=== PATIENT | male | born 1980 | race Caucasian/White ===

== ENCOUNTER → 2021-07-17 09:48 | Outpatient (CLI) | payer OTHER, SELFPAY ==
[2021-07-17 12:28] LABS: Absolute Lymphocyte Count 1.88 X10^3/uL (0.83-4.51); Absolute Neutrophil Count 3.6 X10^3/uL (2.0-7.7); Basophil# 0.05 X10^3/uL; Basophil% 0.8 % (0-1); Eosinophil# 0.09 X10^3/uL; Eosinophils% 1.4 % (0-5); Hematocrit 44.7 % (40-54); Hemoglobin 14.9 g/dL (13.0-16.5); Lymphocyte # 1.88 X10^3/ul (0.83-4.51); Lymphocyte % 30.2 % (19-41); Mean Corp Hgb Conc 33.3 g/dL (32-36); Mean Corpuscular Hgb 28.3 pg (27.0-32.0); Mean Platelet Vol. 11.1 fl (6.2-12.0); Monocyte# 0.57 X10^3/uL; Monocyte% 9.1 % (0-10); NRBC Flagged by Analyzer 0 % (0-5); Neutrophil # 3.62 X10^3/uL (2.7-7.7); Neutrophil % 58.2 % (47-70); Platelet Count 236 K/mm3 (150-450); RBC Distribution Width CV 13.3 % (11.6-14.6); RBC Distribution Width SD 41.4 fl (35.1-43.9); Red Blood Count 5.26 M/mm3 (4.6-6.2); White Blood Count 6.2 K/mm3 (4.4-11.0)
[2021-07-17 12:43] LABS: ALB/GLOB Ratio 0.9 RATIO (0.9-2.4); AST(SGOT) 16 U/L (15-37); Alanine Aminotransfer ALT/SGPT 30 U/L (16-61); Albumin, Serum 3.4 g/dL (3.2-5.0); Alkaline Phosphatase 59 U/L (45-117); Anion Gap 6 (5-15); BUN 15 mg/dL (7-18); BUN/Creat Ratio 12.7 RATIO (10-20); Calcium,Total 8.5 mg/dL (8.5-10.1); Chloride 106 mmol/L (98-107); Cholesterol 124 mg/dL (200); Creatinine, Serum 1.18 mg/dL (0.70-1.30); EST Glomerular Filtration Rate 72 mL/min (>60); Est Glom Filt Rate - Afr Amer 87 mL/min (>60); Globulin 3.7 g/dL (2.2-4.2); Glucose 84 mg/dL (74-106); High Density Lipoprotein 31 mg/dL; Potassium 3.7 mmol/L (3.5-5.1); Protein, Total 7.1 g/dL (6.4-8.2); Sodium Level 141 mmol/L (136-145); Thyroid Stim Hormone (TSH) 1.59 uIU/mL (0.358-3.74); Triglycerides 160 mg/dL; Very Low Density Lipoprotein 32 mg/dL (5-40)
== END ==
PROVIDERS: PCP Family Medicine; Referring Provider Family Medicine; Visit Provider Family Medicine
DX: E66.9 Obesity, unspecified (principal); E78.6 Lipoprotein deficiency
CPT/HCPCS: 36415; 80053; 80061; 84443; 85025

== ENCOUNTER 2021-10-07 07:29 | Day surgery (SDC) | payer OTHER, SELFPAY ==
[2021-10-07] VITALS (7 sets, daily range): BP systolic 108–138; BP diastolic 67–99; PULSE 59–90; RESP 16–18; TEMP 35.8–36.5; O2SAT 93–100; BMI 38.0
[2021-10-07] MEDS: Lactated Ringers 1,000 ML 15 ML IV (07:52)
--- NOTE | 2021-10-07 08:30 | IMM_PTH ---
PATIENT: JIMMIE MAC LOC: EN U#:[id number] AGE/SX: 40/M ROOM: RE10/07/[address]: Dr. Trevor Rabago MD : 1980 BED: DIS: 10/07/2021 SPEC #: [id number] RECD: 10/07/21 13:53 STATUS: BRIAN REQ #: [id number] JOLANTA: 10/07/21 08:[address]: Trevor Rabago DEPT: IMMUNOHISTOCHEMISTRY RECD BY: Jeannie Flannery ENTERED: 10/07/21 13:53 SP TYPE: IMMUNO OTHR DR: MD García Mancilla MD Tissues: Stomach, NOS Procedures: H Pylori (initial) PHYSICIAN & INSTITUTION [place] [address] SPECIMEN INFORMATION: Tissue Source: Antrum biopsy Clinical Info: Epigastric pain Specimen Number: [id number] CPT code: 58669 METHODOLOGY: Deparaffinized sections of prefer/formalin-fixed tissue or PAP/DQ stained slides are incubated with monoclonal/polyclonal antibodies/oligonucleotide probes. Localization is made via biotin free immunoperoxidase method. Appropriate controls are performed and reacted as expected. Results on target cell population are indicated in the following table: RESULTS: ANTIBODY / CLONE RESULT H Pylori (polyclonal) negative These tests were developed and their performance characteristics determined by [facility]. They may not have been cleared or approved by the U.S. Food and Drug Administration. The FDA has determined that such clearance or approval is not necessary. INTERPRETATION: Antrum biopsy: Negative for Helicobacter pylori organisms. SJ:meryl 10/08/2021
--- NOTE | 2021-10-07 08:30 | EGD_PTH ---
PATIENT: JIMMIE MAC LOC: EN U#:[id number] AGE/SX: 40/M ROOM: RE10/07/[address]: Dr. Trevor Rabago MD : 1980 BED: DIS: 10/07/2021 SPEC #: [id number] RECD: 10/07/21 10:34 STATUS: BRIAN MOONEY #: [id number] JOLANTA: 10/07/21 08:[address]: Trevor Rabago DEPT: SURGICAL PATHOLOGY RECD BY: Vikcie Kumar ENTERED: 10/07/21 11:12 SP TYPE: EGD BIOPSY OT DR: MD García Mancilla MD Tissues: Gastric mucous membrane Procedures: Surgery Specimen Level IV HEADER OPERATION: EGD ([facility]) PRE-OP DIAGNOSIS: Epigastric pain TISSUE SUBMITTED: Antrum biopsy for histo and H. pylori MICROSCOPIC DIAGNOSIS Antrum biopsy: Mild gastritis. See microscopic description and comment. JOSE LUIS:meryl 10/08/2021 COMMENT The results of immunohistochemistry for Helicobacter pylori will be reported separately ([id number]). MICROSCOPIC DESCRIPTION Slides are reviewed. The specimen shows fragments of gastric mucosa with chronic inflammatory cell infiltrates in the lamina propria consisting of lymphocytes and plasma cells, consistent with mild chronic gastritis. GROSS DESCRIPTION Received in fixative is one container labeled with the patient's name and designated antrum biopsy. The specimen consists of two irregular fragments of light hatfield soft tissue that in aggregate measure 0.5 x 0.3 x 0.1 cm. The specimen is totally submitted in one cassette. / JOSE LUIS:meryl 10/07/21 TC:3 CPT: 85874
--- NOTE | 2021-10-07 08:59 | HP.PCM_ITS ---
HPI - General HPI Narrative JIMMIE ROACH, is a 40 M who presents with epigastric pain. The patient was started on a PPI and his symptoms resolved and once he stopped a PPI his symptoms return. Patient is having epigastric pain and reflux. [facility] Medical History (Updated 10/02/21 @ 09:36 by Codi Bryan) Arthritis Back pain Gastric reflux Migraine headache Non-smoker Seizures Wears glasses Home Medications benzoyl peroxide microspheres 7 % topical cleanser 1 applic TOPICAL DAILY 06/12/21 [History Last Taken Unknown] ondansetron HCl 4 mg tablet 4 mg PO Q8H PRN 06/12/21 [History Last Taken Unknown] Allergy/AdvReac Type Severity Reaction Status Date / Time No Known Allergies Allergy Verified 10/07/21 07:45 Surgical History (Updated 10/02/21 @ 09:36 by Codi Bryan) History of surgery Social History Smoking Status: Never smoker Past Medical/Surgical History Planned Operation Planned Operative Procedure/s: EGD Previous Hospitalizations/Surgeries HX Hospitalizations: No Any Problems With Anesthesia: No You/Your Family Experience Fever (Hyperthermia) With Anes: No (ADOPTED-NO INFO) Cholinesterase deficiency: No Cardiovascular Hx Hypertension: No Respiratory Hx Sleep Apnea: No Hx Respiratory Tract Infection/Cold (presently): No Do You Snore Loudly (louder than talking or can be heard): No Do You Often Feel Tired/ Fatigued/ Sleepy Dring Daytime?: No Has Anyone Observed You Stop Breathing During Sleep?: No Result (for STOP score): Negative Smoking Status: Never smoker Neurological Does patient have nerve stimulator: No Miscellaneous Recent Exposure to Contagious Disease: No Allergies No Known Allergies Allergy (Verified 10/07/21 07:45) Discharge Is Pt Admitted From a [facility]sp, or a [facility]: No After D/C, Where Do you Plan to Go: Return Home Vital Signs Vital Signs Vital Signs: 10/07/21 07:47 Temperature 97.7 F L Temperature Source Temporal Pulse Rate 73 Respiratory Rate 16 Respiratory Pattern Normal Blood Pressure 138/99 H Blood Pressure Mean 112 Blood Pressure Source Monitor Blood Pressure Position Sitting Blood Pressure Location Right Arm Pulse Ox 100 Oxygen Delivery Method Room Air Weight Weight: 257 lb 15.053 oz Body Mass Index (BMI) 38.0 Physical Exam Const alert and oriented x3 Resp normal respiratory effort and normal air movement Cardio regular rate and regular rhythm GI soft to palpation, non-tender and non-distended Assessment & Plan Assessment/Plan (1) Epigastric pain: PLAN: Patient had ongoing epigastric pain, it resolved on a PPI when he stopped PPI it returned. Plan for EGD with biopsies. I explained endoscopy in detail to the patient. I explained the risks including but not limited to stroke or heart attack with anesthesia, perforation of the GI tract, bleeding, infection. I explained that any of these could necessitate further emergency surgery. The patient understands and all questions were answered sufficiently. The patient wishes to proceed with procedure. Trevor Rabago MD Pager: [facility] [address] [place] [address] [address] [place] [address] Office: Surgery Risks - Colonoscopy Risks Include but are not Limited To: Risks include but are not limited to: Bleeding, perforation requiring further surgery, inability to complete colonoscopy requiring barium enema.
--- NOTE | 2021-10-07 09:24 | OP.EGD_ITS ---
Patient Name: Smo De Los Santos Procedure Date: 10/07/2021 9:07 AM Date of : 1980 Age: 40 Procedure: Upper GI endoscopy Indications: Epigastric abdominal pain Providers: Trevor Rabago MD Referring MD: García Wong Medicines: Monitored Anesthesia Care Patient Profile: This is a 40 year old male. Refer to note in patient chart for documentation of history and physical. Complications: No immediate complications. Procedure: Pre-Anesthesia Assessment: - Prior to the procedure, a History and Physical was performed, and patient medications and allergies were reviewed. The patient's tolerance of previous anesthesia was also reviewed. The risks and benefits of the procedure and the sedation options and risks were discussed with the patient. All questions were answered, and informed consent was obtained. Prior Anticoagulants: The patient has taken no previous anticoagulant or antiplatelet agents. After reviewing the risks and benefits, the patient was deemed in satisfactory condition to undergo the procedure. After obtaining informed consent, the endoscope was passed under direct vision. Throughout the procedure, the patient's blood pressure, pulse, and oxygen saturations were monitored continuously. The Endoscope was introduced through the mouth, and advanced to the second part of duodenum. The upper GI endoscopy was accomplished without difficulty. The patient tolerated the procedure well. Scope In: 9:16:21 AM Scope Out: 9:18:25 AM Total Procedure Duration Time 0 hours 2 minutes 4 seconds Findings: The esophagus was normal. The stomach was normal. The examined duodenum was normal. Biopsies were taken with a cold forceps in the gastric antrum for Helicobacter pylori testing. Impression: - Normal esophagus. - Normal stomach. - Normal examined duodenum. - Biopsies were taken with a cold forceps for Helicobacter pylori testing. Recommendation: - Discharge patient to home. - Resume previous diet. - Continue present medications. - Await pathology results. - Perform a RUQ ultrasound at appointment to be scheduled. Procedure Code(s): --- Professional --- 18188, Esophagogastroduodenoscopy, flexible, transoral; with biopsy, single or multiple Diagnosis Code(s): --- Professional --- R10.13, Epigastric pain CPT copyright 2017 [employer]. All rights reserved. The codes documented in this report are preliminary and upon church organist review may be revised to meet current compliance requirements. Trevor Rabago MD 10/07/2021 9:24:22 AM This report has been signed electronically. Number of Addenda: 0 Note Initiated On: 10/07/2021 9:07 AM
--- NOTE | 2021-10-07 09:25 | OP.CCLET_ITS ---
10/07/2021 García Wong Md Re : Upper GI endoscopy procedure for Som De Los Santos Dear Judith This procedure was performed on Thursday, October 07, 2021. My impressions and recommendations are as follows: Impressions : - Normal esophagus. - Normal stomach. - Normal examined duodenum. - Biopsies were taken with a cold forceps for Helicobacter pylori testing. Recommendations : - Discharge patient to home. - Resume previous diet. - Continue present medications. - Await pathology results. - Perform a RUQ ultrasound at appointment to be scheduled. My findings are described in the full procedure note, which is enclosed. If I can be of further assistance, please feel free to contact me at Doctor phone number(s): , Work: . Sincerely, Trevor Rabago MD 10/07/2021 9:24:22 AM This report has been signed electronically.
== END 2021-10-07 10:12 | disposition home or self-care (01) ==
LOC: EN 07:30 → AC 07:30
PROVIDERS: PCP Family Medicine; Referring Provider Family Medicine; Visit Provider Surgery
PROC: 0DJ08ZZ Inspection of Upper Intestinal Tract, Via Natural or Artificial Opening Endoscopic (ICD-10-PCS; CPT 43235; principal; 2021-10-07 08:25)
DX: K29.70 Gastritis, unspecified, without bleeding (principal); R10.13 Epigastric pain; K21.9 Gastro-esophageal reflux disease without esophagitis
CPT/HCPCS: 43239; 88305; 88342; J7120; J2405

== ENCOUNTER 2021-10-16 07:42 | Outpatient (CLI) | payer OTHER, SELFPAY ==
--- NOTE | 2021-10-16 07:49 | US_ITS ---
STUDY: ABDOMINAL ULTRASOUND - RIGHT UPPER QUADRANT REASON FOR VISIT: Male, 40 years old Abdominal pain TECHNIQUE: Ultrasound evaluation of the right upper quadrant was performed with real-time and static rodriguez-scale imaging. TECHNICAL QUALITY: Limited. Examination limited by bowel gas. COMPARISON: None. FINDINGS: Liver: The liver measures 16.9 cm. There is normal echogenicity of the liver. The bile ducts are within normal limits. There is hepatic color flow. The direction of portal flow is hepatopetal. There is no demonstrated mass lesion. Gallbladder: Normal distended gallbladder. The gallbladder wall measures 2.4 mm. There is a negative sonographic Saeed''s sign. There is no pericholecystic fluid. There are multiple echogenic structures within the gallbladder, consistent with multiple gallstones. Common Bile Duct (C.B.D.): The common bile duct measures 3.7 mm. Pancreas: There is nonvisualization of the pancreas due to overlying bowel gas. Right Kidney: Normal size of the right kidney. The right kidney measures 11.3 cm x 5.5 cm x 6.3 cm. Normal renal cortex. The right cortex measures 1.7 cm. There is no demonstrated renal mass or cyst. There is no right hydronephrosis. US/Gallbladder IMPRESSION: Multiple gallstones. Electronically Signed: Tolu Spicer MD at 9:21 EST , Service support ,
== END 2021-10-16 23:59 | disposition short-term general hospital (02) ==
LOC: US 07:47
PROVIDERS: PCP Family Medicine; Referring Provider Physician Assistant; Visit Provider Physician Assistant
DX: R10.13 Epigastric pain (principal)
CPT/HCPCS: 76705

== ENCOUNTER 2022-08-14 05:10 | Inpatient (IN) | payer OTHER, SELFPAY ==
[2022-08-14 05:11] VITALS: BP 134/92; PULSE 79; RESP 18; TEMP 36.7; O2SAT 95; BMI 39.8
--- NOTE | 2022-08-14 05:12 | EDS_ITS ---
HPI History of Present Illness Chief Complaint: Abd Pain Narrative Narrative: 41-year-old male here with abdominal pain. The patient states he had 1 day of epigastric abdominal pain. Denies any alcohol use. Denies any nausea or vomiting. Denies fever. No chills. Denies melena hematochezia. Denies diarrhea constipation. Last bowel was yesterday. No history abdominal surgeries. Denies chest pain. Notes abdominal pain gets worse when taking a deep breath. Per patient he is aware he has gallstones. States he is followed with surgery in the past. Surgeon recommended gallbladder move at that time however patient did not feel comfortable with this procedure. He states he still has his gallbladder Old chart reviewed: Ultrasound gallbladder done in October 2021 shows multiple gallstones [facility] Medical History (Updated 08/14/22 @ 06:[address] Steven Logan, ) Arthritis Back pain Gastric reflux Migraine headache Non-smoker Sebaceous cyst of axilla Seizures Wears glasses Home Medications benzoyl peroxide microspheres 7 % topical cleanser 1 applic topical DAILY 06/12/21 [History Last Taken Unknown] Allergy/AdvReac Type Severity Reaction Status Date / Time No Known Allergies Allergy Verified 08/14/22 05:15 Surgical History History of surgery Social History Smoking Status: Never smoker ROS ROS ED ROS Narrative Constitutional: Denies fever HEENT: Denies sore throat Neck: Denies neck pain Cardiovascular: Denies chest pain, syncope Respiratory: Denies shortness of breath GI: Endorses abdominal pain : Denies changes in urinary habits Musculoskeletal: Denies muscle or joint pain Neurologic: Denies numbness weakness or loss of sensation Skin denies rash EXAM Physical Exam Narrative Exam Narrative: Nursing triage notes reviewed, Vital signs reviewed Constitutional: please see mdm HENT: MMM Eyes: Pupils equal round and reactive to light, Extraocular muscles intact Neck: No stridor, no JVD, full neck ROM Lungs: Clear to auscultation, No wheezing or rales. No increased work of breathing, no conversational dyspnea, no accessory muscle use, no nasal flaring. No respiratory distress noted Heart: Regular rate and rhythm, No murmurs, No rubs and No gallops, 2+ distal pulses (radial, femoral, posterior tibial) in all extremities Abdomen: Right upper quadrant TTP, positive Saeed sign. No Rigidity, rebound. No obvious peritoneal signs, no palpable pulsatile abdominal masses, no auscultated abdominal bruit : No CVAT Extremities: No edema Neuro: No focal neurological deficits, cranial nerves II through XII intact, 5/5 strength in all extremities. Intact sensation to light touch in all extremities, 2+ reflexes bilateral patella dens. Normal gait. No ataxia. Skin: No rash or lesions noted Const Vital Signs: 08/14/22 05:11 Temperature 98.0 F Temperature Source Oral Pulse Rate 79 Respiratory Rate 18 Blood Pressure 134/92 H Blood Pressure Mean 106 Pulse Ox 95 Oxygen Delivery Method Room Air MDM MDM MDM Narrative Medical decision making narrative: 41-year-old male here for abdominal pain in the setting of gallstones. Patient was hemodynamically stable, afebrile, nontoxic-appearing. Patient was exam with right upper quadrant TTP, positive Saeed sign. No obvious peritoneal signs. Obtained an ultrasound of the right upper quadrant to rule out acute cholecystitis we also obtain labs without pancreatitis, hepatobiliary pathology, signs of systemic inflammation. Given the epigastric nature of the patient's pain also obtain EKG, troponin and chest x-ray to rule out cardiopulmonary abnormalities masking is epigastric abdominal pain gave fluid bolus, morphine for pain and Zofran for nausea. Lab Data Attestation: I reviewed the patient's lab results. Lab results narrative: CBC with leukocytosis suggestive of systemic inflammation, no severe anemia or thrombocytopenia noted BMP without evidence of significant electrolyte abnormalities, no anion gap, no acute kidney injury. LFTs with severe hyperbilirubinemia, elevations in liver enzymes concerning for obstructive hepatobiliary disease Lipase is wnl indicating no pancreatic inflammation. Troponin is negative, no evidence of myocardial ischemia Labs: Laboratory Results - last 24 hr 08/14/22 08/14/22 05:15 05:15 WBC 11.1 H RBC 5.18 Hgb 15.4 Hct 44.1 MCV 85.1 MCH 29.7 MCHC 34.9 RDW Std Deviation 41.1 RDW Coeff of Angie 13.2 Plt Count 252 MPV 11.1 Immature Gran % (Auto) 0.500 Neut % (Auto) 82.8 H Lymph % (Auto) 7.4 L Atlantic % (Auto) 8.9 Eos % (Auto) 0.1 Baso % (Auto) 0.3 Absolute Neuts (auto) 9.2 H Absolute Lymphs (auto) 0.82 L Nucleated RBC % 0 Sodium 142 Potassium 3.8 Chloride 109 H Carbon Dioxide 28.0 Anion Gap 5 BUN 19 H Creatinine 1.27 Estim Creat Clear Calc 75.00 Est GFR (MDRD) Af Amer 79 Est GFR (MDRD) Non-Af 66 BUN/Creatinine Ratio 15.0 Glucose 120 H Calcium 8.6 Total Bilirubin 2.20 H Direct Bilirubin 1.34 H AST 464 H ALT 436 H Alkaline Phosphatase 87 Troponin I High Sens 4 Total Protein 7.6 Albumin 3.8 Globulin 3.8 Lipase 94 Radiography Chest X-Ray - ED: Read by ED Physician EKG Initial EKG: Attestation: I personally reviewed and interpreted this EKG as follows: Comments: EKG with normal sinus rhythm, normal axis, normal intervals, no STEMI Treatment and Re-Evaluation Narrative: Unfortunately [facility] does not have ultrasound available at this time. Ultimately available at 7 AM approximately 1 hour after my initial evaluation. Patient's labs are concerning for obstructive hepatobiliary pathology with elevations in bilirubin, liver enzymes. With leukocytosis concern for acute cholecystitis. Discharge Plan Triage Chief Complaint: Abd Pain ED Provider: Steven Logan Dx/Rx/DC Orders Clinical Impression: Epigastric pain, Hx of gallstones, Leukocytosis, Hyperbilirubinemia, Elevated liver enzymes Prescriptions: No Action benzoyl peroxide microspheres 7 % cleanser 1 applic topical DAILY Primary Care Provider: García Wong Referrals: García Wong MD [Primary Care Provider] -
--- NOTE | 2022-08-14 05:33 | US_ITS ---
STUDY: ABDOMINAL ULTRASOUND - RIGHT UPPER QUADRANT REASON FOR VISIT: Male, 41 years old RUQ TTP, hx of gallstones TECHNIQUE: Ultrasound evaluation of the right upper quadrant was performed with real-time and static rodriguez-scale imaging. TECHNICAL QUALITY: Adequate. COMPARISON: None. FINDINGS: LIVER: Length 18 cm. Increased echogenicity. Main portal vein patent. GALLBLADDER Size: Distended. Stones: Multiple stones. Largest measured 9 mm. Wall thickness: Not thickened. 2.7 mm. Pericholecystic fluid: None. Sonographic Saeed sign: Negative. EXTRAHEPATIC BILE DUCTS: Common bile duct 5 mm not dilated. PANCREAS: Not visualized, obscured by bowel gas. RIGHT KIDNEY: No hydronephrosis. ASCITES: None. US/Gallbladder IMPRESSION: Cholelithiasis. No evidence of acute cholecystitis. Hepatomegaly with fatty infiltration. Electronically Signed: Paula Snyder MD at 7:47 EDT ,
--- NOTE | 2022-08-14 05:34 | EKG12_ITS ---
Test Reason : ABD PAIN Blood Pressure : / mmHG Vent. Rate : 072 BPM Atrial Rate : 072 BPM P-R Int : 180 ms QRS Dur : 090 ms QT Int : 374 ms P-R-T Axes : 057 066 043 degrees QTc Int : 409 ms Normal sinus rhythm Normal ECG Confirmed by DEVI KWOK, FREDDY ([id number]), assignment desk editor MARGE VELIZ ([id number]) on 08/17/2022 1:18:45 PM Referred By: BOO Confirmed By:FREDDY QUINONEZ MD
[2022-08-14] MEDS: 0.9% Normal Saline 1,000 ML 1000 ML IV (05:43)
[2022-08-14] MEDS: Ondansetron 4 MG/2 ML Vial IV (05:44)
[2022-08-14] MEDS: Morphine 4 MG/ML Syringe IV (05:44)
[2022-08-14 05:51] LABS: Absolute Lymphocyte Count 0.82 X10^3/uL (0.83-4.51); Absolute Neutrophil Count 9.2 X10^3/uL (2.0-7.7); Basophil# 0.03 X10^3/uL; Basophil% 0.3 % (0-1); Eosinophil# 0.01 X10^3/uL; Eosinophils% 0.1 % (0-5); Hematocrit 44.1 % (40-54); Hemoglobin 15.4 g/dL (13.0-16.5); Lymphocyte # 0.82 X10^3/ul (0.83-4.51); Lymphocyte % 7.4 % (19-41); Mean Corp Hgb Conc 34.9 g/dL (32-36); Mean Corpuscular Hgb 29.7 pg (27.0-32.0); Mean Corpuscular Volume 85.1 fL (80-94); Mean Platelet Vol. 11.1 fl (6.2-12.0); Monocyte# 0.99 X10^3/uL; Monocyte% 8.9 % (0-10); NRBC Flagged by Analyzer 0 % (0-5); Neutrophil % 82.8 % (47-70); Platelet Count 252 K/mm3 (150-450); RBC Distribution Width CV 13.2 % (11.6-14.6); RBC Distribution Width SD 41.1 fl (35.1-43.9); Red Blood Count 5.18 M/mm3 (4.6-6.2); White Blood Count 11.1 K/mm3 (4.4-11.0)
[2022-08-14 06:10] LABS: AST(SGOT) 464 U/L (15-37); Alanine Aminotransfer ALT/SGPT 436 U/L (16-61); Albumin, Serum 3.8 g/dL (3.2-5.0); Alkaline Phosphatase 87 U/L (45-117); Anion Gap 5 (5-15); BUN 19 mg/dL (7-18); Bilirubin, Direct 1.34 mg/dL (0.00-0.30); Calcium,Total 8.6 mg/dL (8.5-10.1); Chloride 109 mmol/L (98-107); Creatinine, Serum 1.27 mg/dL (0.70-1.30); EST Glomerular Filtration Rate 66 mL/min (>60); Est Glom Filt Rate - Afr Amer 79 mL/min (>60); Globulin 3.8 g/dL (2.2-4.2); Glucose 120 mg/dL (74-106); Lipase 94 U/L (73-393); Potassium 3.8 mmol/L (3.5-5.1); Protein, Total 7.6 g/dL (6.4-8.2); Sodium Level 142 mmol/L (136-145); Troponin-I HS 4 pg/mL (3.0-78.0)
--- NOTE | 2022-08-14 07:25 | RAD_ITS ---
STUDY: X-RAY CHEST REASON FOR EXAM: Male, 41 years old. epigastric abdominal pain TECHNIQUE: AP portable. 7:38 AM COMPARISON: None. FINDINGS: LUNGS: No consolidation. No pneumothorax. MEDIASTINUM: Unremarkable. CARDIAC SILHOUETTE: Not enlarged. BONES AND SOFT TISSUES: No acute abnormalities. RAD/Chest 1 View (Portable) IMPRESSION: No evidence of active intrathoracic disease. Electronically Signed: Paula Snyder MD at 7:44 EDT ,
--- NOTE | 2022-08-14 08:16 | NURSING ---
MED SURG OBS VINOD CHOLELITHIASIS, ABD PAIN, ABN LABS
[2022-08-14 08:53] VITALS: BP 128/80; PULSE 66; RESP 18; TEMP 37.1; O2SAT 97
[2022-08-14] MEDS: 0.9% Normal Saline 1,000 ML 125 ML IV ×2 (09:50→17:21)
[2022-08-14 09:56] VITALS: BP 130/83; PULSE 78; RESP 18; TEMP 36.8; O2SAT 98; BMI 40.8
--- NOTE | 2022-08-14 14:44 | NURSING ---
verbal report given to juan c PEREZ
[2022-08-14 15:01] VITALS: BP 137/79; PULSE 89; RESP 18; TEMP 37.2; O2SAT 98
--- NOTE | 2022-08-14 17:55 | CASEMGMT ---
ANA VILLA POCKET CUTTER CM to room to meet with patient for initial transition planning/care coordination assessment. ANA VILLA introduced self and role at [facility].? Pt voices understanding and consents to assessment at this time.? Pt sitting up on edge of bed in no distress at this time.? Pt is A/O at this time and answers all questions appropriately.?? Care providers, pharmacy, and demographics verified/updated at this time.? PCP:?Dr Wong Specialists:?none Preferred Pharmacy:?[facility] Insurance:?MMO Prescription Benefit:?Pt states, I believe I might have it Living Will/HPOA:??Pt does not currently have LW/HCPOA and declines info at this time.? Pt made aware that he can contact as an out-pt and make appt in the future if he decides he would like to talk with someone about this or would like to utilize [facility] social work for advanced directive completion.? Given [employer] card with information and contact number. Pt expresses understanding.??? LNOK:? Living Arrangements:?Lives w/his . Independent. Works full-time Transportation:?Pt states he is able to drive, but does not like to d/t anxiety, so provides most transportation. DME: ? Denies using any DME and denies needs.?? HHC/SNF:?No hx of either. No needs identified. Pt wishes to return home and states has no concerns with going home at time of discharge.?CM to follow for any discharge planning/needs.? Pt voices no concerns/needs at this time.? Advised pt to ask for CM if any questions/concerns/needs arise.? Voices understanding. PLAN:??Home Tomas HUIZAR RN, CM?
--- NOTE | 2022-08-14 18:13 | PCM.HP.STD ---
HPI - General General Date of Admission: 08/14/22 Date of Service: 08/14/22 Chief Complaint: abdominal pain HPI Narrative JIMMIE ROACH, is a 41 M who presents with right upper quadrant and epigastric abdominal pain. He has known cholelithiasis - seen by Dr. Rabago in October for this but deferred surgery at that time [facility] Medical History (Updated 08/14/22 @ 10:07 by Daisha Tubbs) Arthritis Back pain Gastric reflux Migraine headache Non-smoker Sebaceous cyst of axilla Seizures Wears glasses Home Medications benzoyl peroxide microspheres 7 % topical cleanser 1 applic topical DAILY Check with primary doctor 06/12/21 [History Last Taken Unknown] Allergy/AdvReac Type Severity Reaction Status Date / Time No Known Allergies Allergy Verified 08/14/22 05:15 Surgical History (Updated 08/14/22 @ 10:09 by Daisha Tubbs) History of surgery Social History Smoking Status: Never smoker Vital Signs Vital Signs Vital Signs: 08/14/22 05:11 08/14/22 08:53 08/14/22 09:56 Temperature 98.0 F 98.7 F 98.2 F Temperature Source Oral Oral Oral Pulse Rate 79 66 78 Pulse Strength Respiratory Rate 18 18 18 Blood Pressure 134/92 H 128/80 H 130/83 H Blood Pressure Mean 106 96 98 Blood Pressure Source Monitor Blood Pressure Position Sitting Blood Pressure Location Right Arm Pulse Ox 95 97 98 Oxygen Delivery Method Room Air Room Air Room Air 08/14/22 10:27 08/14/22 15:01 Temperature 98.9 F Temperature Source Oral Pulse Rate 89 Pulse Strength Normal (2+) Respiratory Rate 18 Blood Pressure 137/79 H Blood Pressure Mean 98 Blood Pressure Source Monitor Blood Pressure Position Semi-Fowlers Blood Pressure Location Right Arm Pulse Ox 98 Oxygen Delivery Method Room Air Weight Weight: 125.645 kg Body Mass Index (BMI) 40.8 Results Lab / Micro Data Result Diagrams: 08/14/22 05:15 08/14/22 05:15 Labs: Laboratory Results - last 24 hr 08/14/22 05:15: WBC 11.1 H, RBC 5.18, Hgb 15.4, Hct 44.1, MCV 85.1, MCH 29.7, MCHC 34.9, RDW Std Deviation 41.1, RDW Coeff of Angie 13.2, Plt Count 252, MPV 11.1, Immature Gran % (Auto) 0.500, Neut % (Auto) 82.8 H, Lymph % (Auto) 7.4 L, Gregory % (Auto) 8.9, Eos % (Auto) 0.1, Baso % (Auto) 0.3, Absolute Neuts (auto) 9.2 H, Absolute Lymphs (auto) 0.82 L, Nucleated RBC % 0 08/14/22 05:15: Sodium 142, Potassium 3.8, Chloride 109 H, Carbon Dioxide 28.0, Anion Gap 5, BUN 19 H, Creatinine 1.27, Estim Creat Clear Calc 75.00, Est GFR (MDRD) Af Amer 79, Est GFR (MDRD) Non-Af 66, BUN/Creatinine Ratio 15.0, Glucose 120 H, Calcium 8.6, Total Bilirubin 2.20 H, Direct Bilirubin 1.34 H, AST 464 H, ALT 436 H, Alkaline Phosphatase 87, Troponin I High Sens 4, Total Protein 7.6, Albumin 3.8, Globulin 3.8, Lipase 94 Radiology Impression Gallbladder Ultrasound 08/14/22 05:33 IMPRESSION: Cholelithiasis. No evidence of acute cholecystitis. Hepatomegaly with fatty infiltration. Electronically Signed: Paula Snyder MD at 7:47 EDT , Chest X-Ray 08/14/22 07:25 IMPRESSION: No evidence of active intrathoracic disease. Electronically Signed: Paula Snyder MD at 7:44 EDT , Assessment & Plan Assessment/Plan (1) Gallstones: PLAN: Patient seems much improved since admission, requiring minimal pain medications I have told him that given that this is not urgent surgery at this point in time, I will not schedule for surgery over the weekend due to lack of optimal personnel present. I may be able to schedule surgery for Wednesday. I have explained the procedure to the patient - that is laparoscopic cholecystectomy. I have counseled the patient as to the risks of the procedure, including but not limited to: infection, bleeding, injury to any blood vessels/nerves, scar tissue, injury to any intraabdominal organs, injury to kidney/ureters, injury to bowel/bladder, injury to the common bile duct/biliary tree, bile leakage, intraabdominal abscess/bleeding, hernias at incisional sites, wound infections, possible open procedure, complications of anesthesia, postoperative pneumonia/cardiac problems/blood clots etc. the patient understands. I have answered all questions to the patient?s satisfaction and the patient has no further questions. His concern is whether insurance will quickly approve for the procedure if he is discharged from the hospital. I told patient that I cannot answer that question. At this point, he prefers to stay in the hospital until surgery is achieved. He has a minimally elevated WBC, will hold of an antibiotics unless he clinically has further symptoms, at this point, patient does not appear to have acute cholecystitis but more likely biliary colic. Will monitor temperature changes Will check repeat labs later this - Wednesday am. PLAN: Plan see above
[2022-08-14 19:47] VITALS: BP 133/89; PULSE 84; RESP 16; TEMP 36.9; O2SAT 96
[2022-08-14 19:51] VITALS: BP 133/89; PULSE 84; RESP 16; TEMP 36.9; O2SAT 96
--- NOTE | 2022-08-14 20:30 | CM.ED ---
SINDY note SINDY was advised that patient has questions regarding his insurance. SINDY called patient and advised him that if he was hospitalized as an inpatient then his hospital benefit will provide the coverage. Patient said that the opiton is for him till stay till Wednesday for surgery or go home and come back for Wednesday but then people have stated it would be elective surgery. Patient also inquired as to why his surgeon changed and this appeals writer said that this appeals writer does not know the answer to that question. SINDY will have CM follow up with patient on Wednesday for clarification. SINDY also encouraged patient to contact his insurance regarding his benefit. Email sent to Craig MADISON
[2022-08-15] MEDS: 0.9% Normal Saline 1,000 ML 125 ML IV ×2 (01:00→08:28)
[2022-08-15 02:03] VITALS: BP 122/78; PULSE 90; RESP 18; TEMP 37.2; O2SAT 95
[2022-08-15 08:00] VITALS: BP 132/89; PULSE 80; RESP 17; TEMP 36.8; O2SAT 96
--- NOTE | 2022-08-15 10:12 | PCM.PN.SRG ---
Subjective Subjective Patient has minimal abdominal pain - described as intermittent twinges of sharp pain (he states on a scale of 0-2 on a scale of 1-10) Feels hungry -asks about a regular diet Objective Data Objective Data Vital Signs: Vital Signs Temp Pulse Resp BP Pulse Ox O2 Del Method 98.9 F 90 18 122/78 H 95 Room Air 08/15/22 02:03 08/15/22 02:03 08/15/22 02:03 08/15/22 02:03 08/15/22 02:03 08/15/22 02:03 Oxygen Delivery Method Room Air Weight: 125.645 kg Body Mass Index (BMI) 40.8 Intake & Output: Intake and Output for Last 24 Hours 08/13/22 08/14/22 08/15/22 23:59 23:59 23:59 Intake Total 2109.58 / 2909.58 3189.58 / 3189.58 Output Total 900 / 900 Balance 2109.58 / 2309.58 2289.58 / 2289.58 Lab / Micro Data Attestation: I reviewed the patient's lab results. Result Diagrams: 08/14/22 05:15 08/14/22 05:15 Physical Exam Const alert and oriented x3 General Appearance: comfortable HEENT normocephalic Neck supple Resp normal respiratory effort Effort and Inspection: able to speak in complete sentences GI GI Narrative: abdomen - benign appearing Assessment & Plan Assessment/Plan (1) Gallstones: PLAN: Patient still has insurance concerns regarding surgery which I cannot answer - he wants to be assured that if he is discharged, he would not have to wait long to schedule surgery and that insurance will quickly approve for surgery I have explained the surgery to the patient - he has no further questions regarding this He will discuss with social psychologist and then decide if he wants to stay in the hospital or not. PLAN: Plan see above
[2022-08-15] MEDS: Acetaminophen 500 MG Tablet PO (10:52)
--- NOTE | 2022-08-15 11:00 | CASEMGMT ---
Addendum entered by Craig Nunez 08/15/22 12:54: Labs have been re-drawn. Dr Gutierrez notified and reviewed results w/her. She states she will discharge pt and pt to f/u with Dr Rabago as an OP on Wednesday. Pt notified. Addendum entered by Craig Nunez 08/15/22 11:42: CBC and liver enzymes have been drawn and results are back. Much improvement noted w/liver enzymes. Dr Gutierrez notified and made aware pt/family comfortable w/pt being discharged home today as long as labs had not worsened too much. Dr Gutierrez reviewed the labs and states she will discharge pt today and okay w/pt f/u w/Dr Rabago as pt had initially seen him. Pt and family notified of all of the above. Tomas HUIZAR RN, CM Original Note: ANA VILLA NOTE: ANA VILLA spoke w/Dr Gutierrez. Per Dr Gutierrez, pt is medically ready to be discharged and can have surgery done as an OP. She states she has explained this to the pt but he has concerns/questions re: insurance and coverage. ANA VILLA to room to talk w/pt. Family at bedside and on the phone w/an insurance rep when ANA VILLA entered room. Once pt/family completed phone call w/insurance co, ANA VILLA able to answer further questions re: insurance, status, and medical necessity requirements for on-going hospitalization. Pt/family verbalize understanding and state they are comfortable with pt being discharged home today, as long as labs are not too unchanged from previously and Dr Gutierrez still feels he is medically ready for discharge after labs resulted. They are aware CBC and liver enzymes have been ordered and to be drawn today. RNMisty, and charge master coordinatorKimmie, made aware. Tomas HUIZAR RN, CM
--- NOTE | 2022-08-15 11:43 | DCINST_ITS ---
Discharge Instructions Follow Up Care Test Results: Test results from this visit will be discussed in further detail at your follow- up appointment, if applicable. Discharge Plan Admission Admit Date/Time: 08/14/22 08:14 Primary Reason for Your Visit: abdominal pain Attending Provider: Sydnee Gutierrez Primary Care Provider: García Wong Instructions Additional Instructions / Restrictions: Recommendations - low fat diet Can follow up with Dr. Rabago for consideration of gallbladder surgery. Discharge Orders/Prescriptions Prescriptions: No Action benzoyl peroxide microspheres 7 % cleanser 1 applic topical DAILY Referrals / Follow Up: García Wong MD [Primary Care Provider] - Disposition Discharge Orders: Discharge Patient (Routine); Ordered 08/15/22 Ordered By: Dr. Sydnee Gutierrez
[2022-08-15 12:24] LABS: Absolute Lymphocyte Count 1.76 X10^3/uL (0.83-4.51); Absolute Neutrophil Count 5.1 X10^3/uL (2.0-7.7); Basophil# 0.05 X10^3/uL; Basophil% 0.7 % (0-1); Eosinophil# 0.08 X10^3/uL; Hematocrit 41.5 % (40-54); Hemoglobin 13.8 g/dL (13.0-16.5); Lymphocyte # 1.76 X10^3/ul (0.83-4.51); Lymphocyte % 22.9 % (19-41); Mean Corp Hgb Conc 33.3 g/dL (32-36); Mean Corpuscular Hgb 28.2 pg (27.0-32.0); Mean Corpuscular Volume 84.7 fL (80-94); Monocyte# 0.67 X10^3/uL; Monocyte% 8.7 % (0-10); NRBC Flagged by Analyzer 0 % (0-5); Neutrophil # 5.05 X10^3/uL (2.7-7.7); Neutrophil % 65.8 % (47-70); Platelet Count 203 K/mm3 (150-450); RBC Distribution Width CV 13.4 % (11.6-14.6); RBC Distribution Width SD 41.6 fl (35.1-43.9); White Blood Count 7.7 K/mm3 (4.4-11.0)
[2022-08-15 12:39] LABS: AST(SGOT) 351 U/L (15-37); Alanine Aminotransfer ALT/SGPT 810 U/L (16-61); Albumin, Serum 3.2 g/dL (3.2-5.0); Alkaline Phosphatase 120 U/L (45-117); Bilirubin, Direct 0.62 mg/dL (0.00-0.30); Globulin 3.4 g/dL (2.2-4.2); Protein, Total 6.6 g/dL (6.4-8.2)
== END 2022-08-15 14:57 | disposition home or self-care (01) | DRG 446 ==
LOC: ED 05:48 → MS3 09:32
PROVIDERS: Admitting Provider Surgery; Emergency Provider Emergency Medicine; PCP Family Medicine; Visit Provider Surgery
DX: K80.20 Calculus of gallbladder without cholecystitis without obstruction (principal)
CPT/HCPCS: 71045; 76705; 80048; 80076; 83690; 84484; 85025; 93005; 99284; J7030; A4216; J2405

== ENCOUNTER → 2022-08-17 | Outpatient (CLI) | payer OTHER, SELFPAY ==
[2022-08-17 13:22] LABS: Absolute Lymphocyte Count 2.08 X10^3/uL (0.83-4.51); Absolute Neutrophil Count 4.7 X10^3/uL (2.0-7.7); Basophil# 0.07 X10^3/uL; Basophil% 0.9 % (0-1); Eosinophils% 1.3 % (0-5); Hematocrit 44.6 % (40-54); Hemoglobin 14.8 g/dL (13.0-16.5); Lymphocyte # 2.08 X10^3/ul (0.83-4.51); Lymphocyte % 26.5 % (19-41); Mean Corp Hgb Conc 33.2 g/dL (32-36); Mean Corpuscular Hgb 27.9 pg (27.0-32.0); Mean Corpuscular Volume 84.2 fL (80-94); Mean Platelet Vol. 10.9 fl (6.2-12.0); Monocyte# 0.81 X10^3/uL; Monocyte% 10.3 % (0-10); NRBC Flagged by Analyzer 0 % (0-5); Neutrophil # 4.69 X10^3/uL (2.7-7.7); Neutrophil % 59.9 % (47-70); Platelet Count 232 K/mm3 (150-450); RBC Distribution Width CV 13.3 % (11.6-14.6); RBC Distribution Width SD 40.6 fl (35.1-43.9); White Blood Count 7.8 K/mm3 (4.4-11.0)
[2022-08-17 14:11] LABS: AST(SGOT) 59 U/L (15-37); Alanine Aminotransfer ALT/SGPT 400 U/L (16-61); Albumin, Serum 3.8 g/dL (3.2-5.0); Alkaline Phosphatase 108 U/L (45-117); Anion Gap 3 (5-15); BUN 12 mg/dL (7-18); BUN/Creat Ratio 10.5 RATIO (10-20); Calcium,Total 9.2 mg/dL (8.5-10.1); Chloride 106 mmol/L (98-107); Creatinine, Serum 1.14 mg/dL (0.70-1.30); EST Glomerular Filtration Rate 74 mL/min (>60); Est Glom Filt Rate - Afr Amer 90 mL/min (>60); Globulin 3.9 g/dL (2.2-4.2); Glucose 87 mg/dL (74-106); Potassium 3.6 mmol/L (3.5-5.1); Protein, Total 7.7 g/dL (6.4-8.2); Sodium Level 140 mmol/L (136-145)
== END | disposition home or self-care (01) ==
LOC: LAB 12:24
PROVIDERS: PCP Family Medicine; Visit Provider Physician Assistant
DX: R10.13 Epigastric pain (principal)
CPT/HCPCS: 36415; 80053; 85025

== ENCOUNTER 2022-08-20 09:58 | Day surgery (SDC) | payer OTHER, SELFPAY ==
[2022-08-20] VITALS (12 sets, daily range): BP systolic 124–143; BP diastolic 80–99; PULSE 79–97; RESP 14–18; TEMP 36.4–36.6; O2SAT 91–98; BMI 39.0
--- NOTE | 2022-08-20 10:14 | EKG12_ITS ---
Test Reason : PREOP Blood Pressure : / mmHG Vent. Rate : 069 BPM Atrial Rate : 069 BPM P-R Int : 146 ms QRS Dur : 096 ms QT Int : 398 ms P-R-T Axes : 066 075 023 degrees QTc Int : 426 ms Normal sinus rhythm Normal ECG Confirmed by PETE KWOK, ISIS ([id number]), map editor MARGE VELIZ ([id number]) on 08/26/2022 8:14:23 AM Referred By: Filipe East Confirmed By:ISIS FREEMAN MD
[2022-08-20] MEDS: Lactated Ringers 1,000 ML 15 ML IV ×2 (10:27→15:21)
--- NOTE | 2022-08-20 11:31 | PCM.HP.BLA ---
History and Physical Date of Admission: 08/20/22 Dr. Cain Mccloud is unavailable to proceed with surgery today. He has asked me to take over the care of this patient. I have introduced myself to this patient and to his . I have reviewed his history and physical and imaging and presentation. Visit Reasons:?RT UPPER QUADRANT PAIN Chief Complaint: Right Upper Quadrant Abdominal Pain Gallery Or Museum Curator Required: No Is patient in pain?: No Allergies No Known Allergies Allergy (Verified 08/17/22 11:34) Medications benzoyl peroxide microspheres 7 % topical cleanser 1 applic topical DAILY Check with primary doctor 06/12/21 [History Confirmed 08/17/22] PFSH Medical History? Arthritis Back pain Gastric reflux Migraine headache Non-smoker Sebaceous cyst of axilla Seizures Wears glasses Surgical History? History of surgery Social History?(Updated 08/17/22 @ 11:33 by Mary Wednesday) Smoking Status:? Never smoker alcohol intake:? current details:? Rarely HPI HPI HPI: Patient presents as an add-on to today's clinic for evaluation of right upper quadrant discomfort and known cholelithiasis.? He reports that he was just recently discharged from the hospital this weekend after he had a gallbladder attack on while at work.? He states that normally his episodes are self-limited, but this episode persisted until 5 AM the next morning.? He reports having a turkey sandwich with a soda at lunch prior to the onset of his pain.? He states when he went to the emergency room he was told by the emergency room physicians that he would likely require a gallbladder surgery the same admission, but when his pain improved by the following day discharge was discussed. Regarding patient's prior episodes of discomfort, he states his first such episode was approximately April 2021.? This led him to present for emergency room evaluation in [place] where he initially was worked up for possible cardiac cause, but ultimately found to have gallstones on the right upper quadrant ultrasound.? He does note that these episodes have been somewhat difficult to distinguish from his history with GERD as well.? October 07, 2021 he underwent EGD with Dr. Rabago and was prescribed omeprazole.? He states he took this faithfully for 2 weeks then discontinued it as there is no further discussion around taking it chronically.? At that procedure he underwent antral biopsy with findings of mild gastritis, but no evidence of Chandler factor pylori infection.? Patient notes that his right upper quadrant abdominal symptoms are associated with cold chills, nausea, and shaking, but no objective fever is ever been measured.? Patient has no prior history of abdominal surgery. Patient's most recent ER work-up was notable for a mild leukocytosis of 11.3 and cholestatic pattern to his LFTs as well as hyperbilirubinemia with a comprehensive metabolic panel.? His right upper quadrant ultrasound performed at this evaluation showed a 2.7 mm wall, confirmed cholelithiasis, and demonstrated a common bile duct diameter of 5 mm.? He is also noted to have evidence of hepatomegaly with fatty liver infiltration. ROS General General: No weight change, appetite, fatigue, colon cancer, breast cancer or weakness HEENT HEENT: No difficulty swallowing, eye injury, eye surgery, swollen glands or hoarseness Endo Endocrine: No thyroid disease, diabetes mellitus, thyroid cancer, Hair loss, heat intolerance or cold intolerance Skin Skin: No rash or changing moles Musc Musculoskeletal: No back problems, arthritis, rheumatoid arthritis, gout or joint pain Cardio Cardiovascular: No murmur, pacemaker, heart disease, atrial fibrillation, high blood pressure, heart attack, heart stent, palpitations, shortness of breat with exertion or chest pain Psych Psychiatric: No depression, anxiety or hearing voices Resp Respiratory: No shortness of breath, No sleep apnea, No cough, No COPD, No asthma, No emphysema and No wheezing Gastro Gastrointestinal: No abdominal pain, No nausea or vomiting, No diarrhea, No constipation, No blood in stool, No acid reflux, No hemorrhoids, No ulcers, No gallbladder problem and No black,tarry stools Niko Hematologic: No blood thinners, No blood disorders, No bleeding, No anemia and No blood clots Neuro Neurologic: No system reviewed and no additional complaints, except as documented, No as per HPI, No abnormal gait, No abnormal hearing, No abnormal movements, No abnormal speech, No behavioral changes, No burning sensations, No confusion, No convulsions, No disequilibrium, No dizziness, No localized weakness, No frequent falls, No headache(s), No lack of coordination, No loss of vision, No memory loss, No numbness, No other visual disturbances, No radicular pain, No restless legs, No sensory deficit, No syncope, No tingling, No tremor(s), No weakness and No other Exam Const General: cooperative and no acute distress Orientation: alert, awake and oriented x3 Resp Effort & Inspection: normal respiratory effort Auscultation: no rales, no rhonchi and no wheezes Cardio Rhythm: regular rhythm GI Other: No scars, nondistended, obese, soft, tender to palpation in the right upper quadrant but negative Saeed sign Assessment and Plan Assessment and Plan (1) Elevated liver enzymes: ?Status:?Acute (2) Hyperbilirubinemia: ?Status:?Acute (3) Symptomatic cholelithiasis: ?Status:?Acute ? ? ? Orders: Orders Comprehensive Metabolic Profil Today R10.13 - Epigastric pain ? CBC W/Diff, Automated Today R10.13 - Epigastric pain ? Plan This is a 41-year-old, relatively healthy, male who presents following recent hospital discharge with complaints of right upper quadrant pain, associated nausea and chills with known cholelithiasis but newly observed abnormalities with his comprehensive metabolic panel.? Taken together this is highly suggestive of biliary colic and probable chronic cholecystitis with possible choledocholithiasis.? I have discussed patient's laboratory and imaging results with him in detail to include hand drawings to better display the biliary drainage situation.? I have recommended urgent laparoscopic cholecystectomy with intraoperative cholangiogram.? Informed patient that I will plan to do this on an outpatient basis, however, if he was found to have persistent common bile duct stones he may require a short admission with consultation to gastroenterology for ERCP.? Patient is accepting of this recommendation and treatment plan and states he is committed to having this done.? We have also discussed that he should plan for 1 week postoperatively to recuperate from his procedure and a post operative clinic visit.? He and his have a number of questions related to postoperative dietary restrictions/recommendations.? I have counseled him that I do generally recommend a low-fat diet following cholecystectomy, but do so with more earnest for him given his repeated findings of fatty liver infiltration.? Patient has and his spouse expressed understanding of this information as well and we will look to have this followed up with primary care provider. Assessment & Plan Assessment/Plan (1) Gallstones: (2) Elevated liver enzymes: PLAN: Plan The patient claims that he is stable since his presentation a week ago. No fever or chills. Is complaining of some right upper quadrant pain today. His most recent set of liver function tests were improving. I have reviewed his ultrasound note the gallstones and a slightly dilated common bile duct as well as the fatty liver. I have proposed for him a laparoscopic cholecystectomy with cholangiograms and if need be an attempt at a laparoscopic common bile duct exploration. We have discussed the technique, benefit, risk, alternatives. We have discussed the potential need for a postoperative ERCP. I additionally discussed with him the findings on ultrasound and body habitus and that if the liver appeared to have a significant mount of fatty change that I would recommend pursuing a laparoscopic guided needle core liver biopsy. I have briefly explained the potential for nonalcoholic steatohepatitis. This would be useful for his caretakers in the future if there is a suspicion of its presence. He has had an option to ask and have questions answered. I am now the fourth general surgeon who he has seen for this problem. He elects to proceed as noted. Filipe East M.D., F.A.C.S.
--- NOTE | 2022-08-20 11:34 | DCINST_ITS ---
Discharge Instructions Procedure General Surgery Diet Discharge Diet: Light diet - advance as tolerated (if you have questions about your diet instructions, please talk to you doctor.) Activity Discharge Activity: May Not Drive (for 3-5 days or while taking narcotic pain medicine.) May shower in (days): 1 Lifting Restrictions: 10 pounds Dressing / Incision Call your doctor if your incision/area has: Continuous Slow Oozing, Sudden Increased Bleeding, Increased Pain/ Swelling, Increased Redness and Foul Smelling Discharge Call your doctor if you observe: Fever of 101 or Higher Suture Line Care: Avoid Pulling/Pushing and Avoid Pinching/Bending Additional Dressing/Incision Instructions:: Change or remove dressing in 4 days. Leave steri-strips in place for 1 week. Follow Up Care Please Follow Up With: Filipe East MD When: Call [phone] to make an appointment to be seen in about 10 days. Test Results: Test results from this visit will be discussed in further detail at your follow- up appointment, if applicable. Discharge Plan Admission Attending Provider: Filipe East Primary Care Provider: García Wong Consulting Providers: Cain Mccloud Discharge Orders/Prescriptions Prescriptions: No Action benzoyl peroxide microspheres 7 % cleanser 1 applic topical DAILY Referrals / Follow Up: García Wong MD [Primary Care Provider] - Disposition Disposition (needs filled in before D/C Order can be placed): Home, Self Care
--- NOTE | 2022-08-20 12:00 | GALL_PTH ---
PATIENT: JIMMIE MAC LOC: [facility] [place] U#:[id number] AGE/SX: 41/M ROOM: RE08/20/[address]: Dr. Filipe East MD : 1980 BED: DIS: 08/20/2022 SPEC #: [id number] RECD: 08/20/22 16:22 STATUS: BRIAN FRANCODelaney #: [id number] JOLANTA: 08/20/22 12:[address]: Filipe East DEPT: SURGICAL PATHOLOGY RECD BY: Louisa Thorne ENTERED: 08/21/22 07:53 SP TYPE: CHAZ TORRE DR: MD García Sandoval MD Tissues: A - Gallbladder, NOS B - Liver, NOS Procedures: Surgery Specimen Level III Surgery Specimen Level V HEADER OPERATION: Laparoscopic cholecystectomy with IOC, liver biopsy PRE-OP DIAGNOSIS: Elevated liver enzymes, hyperbilirubinemia, symptomatic cholelithiasis TISSUE SUBMITTED: A ? Gallbladder, B ? Liver core biopsy MICROSCOPIC DIAGNOSIS A. Gallbladder, cholecystectomy: Chronic cholecytstitis and cholelithiasis. B. Liver, core biopsy: Liver parenchymal tissue with focal minimal macrovesicular steatosis. See microscopic description and comment. /JOSE LUIS 08/24/22 COMMENT Correlation with clinical, laboratory findings and appropriate follow up are necessary. MICROSCOPIC DESCRIPTION Slides are reviewed. B. The specimen shows liver parenchymal tissue with preserved lobular architecture. The hepatocytes show minimal macrovesicular steatosis. The lobular inflammation is not seen. The portal areas do not show significant inflammation. Iron stain shows mild deposition of iron in the hepatocytes and Kupffer cells (1/4). Reticulin stain is unremarkable. PAS stain with and without diastase do not show abnormal accumulation of protein. Trichrome stain does not show significant increase of portal or periportal fibrosis. All stains are performed with appropriate matched controls. GROSS DESCRIPTION A - Received is one container labeled with the patient's name and designated gallbladder. The specimen consists of a gallbladder measuring 8 cm in length and 3 cm in diameter. The external surface is pink-hatfield, smooth and glistening for the most part. Focally it is granular, hemorrhagic and contains cautery artifact. The gallbladder contains a small amount of green-yellow mucoid bile and distended with multiple mulberry, yellowish-orange stones and stone fragments measuring in aggregate 4 x 3.5 x 2 cm and 0.2 to 1.5 cm in greatest dimension. The mucosa is bile-stained and without any mass lesions. The gallbladder wall measures up to 0.5 cm in thickness. Log Inspector sections from the gallbladder and the cystic duct are submitted in one cassette. / JOSE LUIS:meryl 08/21/2022 B - Received in fixative is one container labeled with the patient's name and designated liver core biopsy. The specimen consists of one elongated fragment of light hatfield soft tissue measuring 0.6 cm in length and 0.1 cm in diameter. The specimen is totally submitted in one cassette. / JOSE LUIS:meryl 08/21/2022 TC:3 CPT: 63635, 34311, 36755 x5
--- NOTE | 2022-08-20 12:00 | RAD_ITS ---
STUDY: INTRAOPERATIVE CHOLANGIOGRAM. REASON FOR EXAM: Male, 41 years old. LAP SAM WITH IOC FLUOROSCOPY TIME (if supplied): ( 25 seconds ) minutes/seconds. A cine loop of 171 images was obtained. TECHNIQUE: An intraoperative cholangiogram was performed by the surgeon. Imaging was submitted. COMPARISON: None. FINDINGS: The intra and extrahepatic biliary ducts are unremarkable. No intraluminal filling defect is seen. There is free flow of contrast into the duodenum. RAD/Cholangiogram/ O R,Initial IMPRESSION: Unremarkable intraoperative cholangiogram. Electronically Signed: Tolu Spicer MD at 13:23 EST ,
[2022-08-20] MEDS: Bupivacaine 0.25% 30 ML Vial (13:10)
--- NOTE | 2022-08-20 13:10 | PCM.OPRPT ---
Report of Operation Date of Procedure: 08/20/22 Pre-Operative Diagnosis: Chronic cholecystitis cholelithiasis possible subacute cholecystitis Post-Operative Diagnosis: Same Surgery/Procedure Performed:: Laparoscopic cholecystectomy with cholangiograms, David-Cut needle core right lobe liver biopsy Description of Surgical Findings:: Timeout informed consent was obtained. Patient was taken the operating placed supine on the table underwent general endotracheal ovation esthesia. Ancef 2 g were given intravenously. The abdomen was sterilely prepped and draped. 0.25% Marcaine was used as a local anesthetic. Throughout the procedure a total of 30 cc was used. Local was instilled at the superior aspect the umbilicus sharp dissection carried down through subcu tissue holding sutures of 0 Vicryl placed varies needle inserted saline drop test performed the abdomen was insufflated with CO2 to a pressure of 12 mmHg pressure. 10 mm trocar inserted. The 10 mm laparoscope inserted. The abdomen is inspected and significant mount of fibrofatty omentum. Liver had fatty replacement. Gallbladder was stuck within the liver bed with adherent omentum. 5 mm trochars were placed in the epigastric mid abdomen right upper quadrant. The adherent omentum was carefully bluntly dissected free Hem-o-marianna clips were used for hemostasis were needed. There was significant amount of remaining fibrofatty tissue except completely encasing the gallbladder. This had to be tediously dissected free until the infundibular area could be identified. With blunt dissection I eventually got around the infundibular portion of the gallbladder and further blunt dissection aqua dissection was used to identify the cystic artery and the cystic duct. There was additionally a small posterior cystic artery. Having the critical view now achieved with a Hem-o-marianna clip on the cystic duct [place] made incision through a 14-gauge Angiocath inserted cholangiogram catheter. The patient received a milligram of glucagon. Fluoroscopically controlled cholangiograms were obtained demonstrating normal ductal anatomy and free flow into the small bowel. There was no evidence of any current intraductal filling defects and a nice cholangiogram was achieved. The cholangiogram catheter was removed 2 additional Hem-o-marianna clips were placed on the cystic duct stump prior to transecting it. The anterior cystic artery was clipped twice proximally once distally prior to transecting it. The small posterior vessel secured with a Hem-o-marianna clip. The gallbladder was noted to be inflamed with chronic inflammation and adherent to the liver. Tedious blunt and electrocautery dissection was performed. Small opening did release some bile however it was felt that all stones were kept aspirated or maintained. The gallbladder was tediously dissected free from the liver bed and immediately placed in retrieval bag. A couple loose stones were rapidly retrieved and placed in the bag as well. The right upper quadrant was irrigated and aspirated free. Low resection area liver bed area was inspected and was noted to be hemostatic. Careful inspection for any residual stones were made and none were identified. Through the same site as the clinic Angiocath I put a David-Cut needle core biopsy and obtained a single core biopsy of the right lobe of the liver. That was placed on formalin and immediately submitted for analysis. This was performed because of concern of about possible nonalcoholic steatohepatitis. The biopsy site was secured with electrocautery and hemostasis was intact. The abdomen was now allowed deflate of the CO2. The gallbladder was exited the umbilicus. Slight fascial enlargement was required. The fascia was then approximated with 2 [id number] sutures of 0 Vicryl. Skin edges proximal interrupted 4 Monocryl subdermal stitches. Steri-Strips Telfa OpSite dressings applied. Sponge and instrument and needle counts were reported to the surgeon to be correct. Specimen gallbladder and right lobe liver core biopsy. Blood loss 20 cc. Drains none. Filipe East M.D., F.A.C.S. Surgeon: Filipe East Type of Anesthesia: General Anesthesiologist: Filipe East
[2022-08-20] MEDS: Acetaminophen 325 MG Tablet 650 MG PO (16:40)
== END 2022-08-20 17:36 | disposition home or self-care (01) ==
LOC: SDC 09:58 → AC 09:59
PROVIDERS: PCP Family Medicine; Referring Provider Surgery; Visit Provider Surgery
PROC: (CPT 47610; principal; 2022-08-20 11:40)
DX: K80.10 Calculus of gallbladder with chronic cholecystitis without obstruction (principal); J45.909 Unspecified asthma, uncomplicated; F32.9 Major depressive disorder, single episode, unspecified; K76.0 Fatty (change of) liver, not elsewhere classified; E80.7 Disorder of bilirubin metabolism, unspecified; R74.8 Abnormal levels of other serum enzymes
CPT/HCPCS: 47563; 47379; 00790; 74300; 76000; 88304; 88307; 93005; J7120; J1610; J2405

== ENCOUNTER 2022-10-01 08:47 | Outpatient (RCR) | payer OTHER, SELFPAY | END 2022-10-10 23:59 | LOC: NS 08:47 | PROVIDERS: PCP Family Medicine; Referring Provider Nurse Practitioner Family; Visit Provider Nurse Practitioner Family | DX: E11.9 Type 2 diabetes mellitus without complications (principal) | CPT/HCPCS: 97802 ==

== ENCOUNTER → 2023-03-25 | Outpatient (CLI) | payer OTHER, SELFPAY ==
[2023-03-25 10:32] LABS: Absolute Lymphocyte Count 1.84 X10^3/uL (0.83-4.51); Absolute Neutrophil Count 2.7 X10^3/uL (2.0-7.7); Basophil# 0.04 X10^3/uL; Basophil% 0.8 % (0-1); Eosinophil# 0.08 X10^3/uL; Eosinophils% 1.5 % (0-5); Hematocrit 45.9 % (40-54); Lymphocyte # 1.84 X10^3/ul (0.83-4.51); Mean Corp Hgb Conc 32.7 g/dL (32-36); Mean Corpuscular Hgb 28.2 pg (27.0-32.0); Mean Corpuscular Volume 86.4 fL (80-94); Mean Platelet Vol. 11.1 fl (6.2-12.0); Monocyte# 0.53 X10^3/uL; Monocyte% 10.1 % (0-10); NRBC Flagged by Analyzer 0 % (0-5); Neutrophil # 2.74 X10^3/uL (2.7-7.7); Neutrophil % 52.2 % (47-70); Platelet Count 219 K/mm3 (150-450); RBC Distribution Width CV 13.1 % (11.6-14.6); RBC Distribution Width SD 40.6 fl (35.1-43.9); Red Blood Count 5.31 M/mm3 (4.6-6.2); White Blood Count 5.3 K/mm3 (4.4-11.0)
[2023-03-25 11:14] LABS: AST(SGOT) 14 U/L (15-37); Alanine Aminotransfer ALT/SGPT 22 U/L (16-61); Albumin, Serum 3.7 g/dL (3.2-5.0); Alkaline Phosphatase 54 U/L (45-117); Anion Gap 5 (5-15); BUN 18 mg/dL (7-18); BUN/Creat Ratio 16.5 RATIO (10-20); Calcium,Total 8.9 mg/dL (8.5-10.1); Chloride 108 mmol/L (98-107); Cholesterol 111 mg/dL (200); Creatinine, Serum 1.09 mg/dL (0.70-1.30); EST Glomerular Filtration Rate 78 mL/min (>60); Est Glom Filt Rate - Afr Amer 94 mL/min (>60); Globulin 3.7 g/dL (2.2-4.2); Glucose 83 mg/dL (74-106); High Density Lipoprotein 37 mg/dL; Potassium 3.8 mmol/L (3.5-5.1); Protein, Total 7.4 g/dL (6.4-8.2); Sodium Level 140 mmol/L (136-145); Triglycerides 114 mg/dL; Very Low Density Lipoprotein 23 mg/dL (5-40)
== END | disposition home or self-care (01) ==
LOC: MFPLAB 08:37
PROVIDERS: PCP Family Medicine; Visit Provider Family Medicine
DX: E66.9 Obesity, unspecified (principal)
CPT/HCPCS: 36415; 80053; 80061; 85025

== ENCOUNTER → 2023-09-16 | Outpatient (CLI) | payer OTHER, SELFPAY ==
[2023-09-16 10:21] LABS: Absolute Lymphocyte Count 1.98 X10^3/uL (0.83-4.51); Absolute Neutrophil Count 3.1 X10^3/uL (2.0-7.7); Basophil# 0.04 X10^3/uL; Basophil% 0.7 % (0-1); Eosinophil# 0.09 X10^3/uL; Eosinophils% 1.5 % (0-5); Hematocrit 45.3 % (40-54); Hemoglobin 14.9 g/dL (13.0-16.5); Lymphocyte # 1.98 X10^3/ul (0.83-4.51); Lymphocyte % 34.1 % (19-41); Mean Corp Hgb Conc 32.9 g/dL (32-36); Mean Corpuscular Hgb 28.6 pg (27.0-32.0); Mean Corpuscular Volume 86.9 fL (80-94); Mean Platelet Vol. 11.2 fl (6.2-12.0); Monocyte# 0.53 X10^3/uL; Monocyte% 9.1 % (0-10); NRBC Flagged by Analyzer 0 % (0-5); Neutrophil # 3.14 X10^3/uL (2.7-7.7); Neutrophil % 54.1 % (47-70); Platelet Count 214 K/mm3 (150-450); RBC Distribution Width CV 13.1 % (11.6-14.6); RBC Distribution Width SD 41.4 fl (35.1-43.9); Red Blood Count 5.21 M/mm3 (4.6-6.2); White Blood Count 5.8 K/mm3 (4.4-11.0)
[2023-09-16 10:41] LABS: ALB/GLOB Ratio 1.1 RATIO (0.9-2.4); AST(SGOT) 14 U/L (15-37); Alanine Aminotransfer ALT/SGPT 19 U/L (16-61); Albumin, Serum 3.7 g/dL (3.2-5.0); Alkaline Phosphatase 47 U/L (45-117); Anion Gap 3 (5-15); BUN 15 mg/dL (7-18); BUN/Creat Ratio 14.4 RATIO (10-20); Calcium,Total 8.3 mg/dL (8.5-10.1); Chloride 109 mmol/L (98-107); Cholesterol 119 mg/dL (200); Creatinine, Serum 1.04 mg/dL (0.70-1.30); EST Glomerular Filtration Rate 82 mL/min (>60); Est Glom Filt Rate - Afr Amer 99 mL/min (>60); Globulin 3.5 g/dL (2.2-4.2); Glucose 84 mg/dL (74-106); High Density Lipoprotein 38 mg/dL; Potassium 3.9 mmol/L (3.5-5.1); Protein, Total 7.2 g/dL (6.4-8.2); Sodium Level 141 mmol/L (136-145); Triglycerides 161 mg/dL; Very Low Density Lipoprotein 32 mg/dL (5-40)
== END | disposition home or self-care (01) ==
LOC: MFPLAB 09:01
PROVIDERS: PCP Family Medicine; Visit Provider Family Medicine
DX: E66.9 Obesity, unspecified (principal); K21.9 Gastro-esophageal reflux disease without esophagitis
CPT/HCPCS: 36415; 80053; 80061; 85025

== ENCOUNTER → 2024-03-14 | Outpatient (CLI) | payer OTHER, SELFPAY ==
[2024-03-14 09:41] LABS: Absolute Lymphocyte Count 2.18 X10^3/uL (0.83-4.51); Absolute Neutrophil Count 3.7 X10^3/uL (2.0-7.7); Basophil# 0.06 X10^3/uL; Basophil% 0.9 % (0-1); Eosinophil# 0.07 X10^3/uL; Hematocrit 44.2 % (40-54); Hemoglobin 14.5 g/dL (13.0-16.5); Lymphocyte # 2.18 X10^3/ul (0.83-4.51); Lymphocyte % 32.6 % (19-41); Mean Corp Hgb Conc 32.8 g/dL (32-36); Mean Corpuscular Hgb 28.2 pg (27.0-32.0); Mean Platelet Vol. 11.2 fl (6.2-12.0); Monocyte# 0.68 X10^3/uL; Monocyte% 10.2 % (0-10); NRBC Flagged by Analyzer 0 % (0-5); Neutrophil # 3.67 X10^3/uL (2.7-7.7); Platelet Count 219 K/mm3 (150-450); RBC Distribution Width CV 13.1 % (11.6-14.6); RBC Distribution Width SD 40.8 fl (35.1-43.9); Red Blood Count 5.14 M/mm3 (4.6-6.2); White Blood Count 6.7 K/mm3 (4.4-11.0)
[2024-03-14 10:05] LABS: AST(SGOT) 17 U/L (15-37); Alanine Aminotransfer ALT/SGPT 22 U/L (16-61); Albumin, Serum 3.6 g/dL (3.2-5.0); Alkaline Phosphatase 58 U/L (45-117); Anion Gap 5 (5-15); BUN 21 mg/dL (7-18); BUN/Creat Ratio 17.5 RATIO (10-20); Calcium,Total 8.9 mg/dL (8.5-10.1); Chloride 111 mmol/L (98-107); Cholesterol 99 mg/dL (200); EST Glomerular Filtration Rate 70 mL/min (>60); Est Glom Filt Rate - Afr Amer 84 mL/min (>60); Globulin 3.5 g/dL (2.2-4.2); Glucose 78 mg/dL (74-106); High Density Lipoprotein 40 mg/dL; Potassium 3.9 mmol/L (3.5-5.1); Protein, Total 7.1 g/dL (6.4-8.2); Sodium Level 142 mmol/L (136-145); Triglycerides 121 mg/dL; Very Low Density Lipoprotein 24 mg/dL (5-40)
== END | disposition home or self-care (01) ==
LOC: MFPLAB 08:11
PROVIDERS: PCP Family Medicine; Visit Provider Family Medicine
DX: E78.6 Lipoprotein deficiency (principal); E66.9 Obesity, unspecified
CPT/HCPCS: 36415; 80053; 80061; 84443; 85025

== ENCOUNTER → 2024-09-15 | Outpatient (CLI) | payer OTHER, SELFPAY ==
[2024-09-15 10:31] LABS: ALB/GLOB Ratio 0.9 RATIO (0.9-2.4); AST(SGOT) 12 U/L (15-37); Alanine Aminotransfer ALT/SGPT 15 U/L (16-61); Albumin, Serum 3.5 g/dL (3.2-5.0); Alkaline Phosphatase 63 U/L (45-117); Anion Gap 6 (5-15); BUN 15 mg/dL (7-18); BUN/Creat Ratio 13.8 RATIO (10-20); Calcium,Total 8.9 mg/dL (8.5-10.1); Chloride 107 mmol/L (98-107); Creatinine, Serum 1.09 mg/dL (0.70-1.30); EST Glomerular Filtration Rate 78 mL/min (>60); Est Glom Filt Rate - Afr Amer 94 mL/min (>60); Glucose 77 mg/dL (74-106); PSA,Total - Annual Screen 6.31 ng/mL (0.00-4.00); Protein, Total 7.5 g/dL (6.4-8.2); Sodium Level 140 mmol/L (136-145)
== END | disposition home or self-care (01) ==
LOC: MFPLAB 09:00
PROVIDERS: PCP Family Medicine; Referring Provider Family Medicine; Visit Provider Family Medicine
DX: Z12.5 Encounter for screening for malignant neoplasm of prostate (principal); K76.0 Fatty (change of) liver, not elsewhere classified
CPT/HCPCS: 36415; 80053; 84153; G0103

== ENCOUNTER → 2024-12-07 | Outpatient (CLI) | payer OTHER, SELFPAY ==
[2024-12-12 04:07] LABS: PSA, Free 0.82 ng/mL; PSA, Free % 21.5 % (.)
== END | disposition home or self-care (01) ==
LOC: MTLAB 09:58
PROVIDERS: PCP Family Medicine; Referring Provider Nurse Practitioner; Visit Provider Nurse Practitioner
DX: R97.20 Elevated prostate specific antigen [PSA] (principal)
CPT/HCPCS: 36415; 84153; 84154